=== PATIENT | male | born 1995 | race Two or more races ===

== ENCOUNTER 2024-12-24 03:20 | Emergency (ER) | payer MEDICAID, OTHER ==
[~2024-12-24] VITALS: Ht 182.9 cm; Wt 61.7 kg
--- NOTE | 2024-12-24 03:30 | ED.PDOC ---
Back pain HPI HPI Comments This is a 29-year-old male presents to the ED chief complaint right shoulder pain. Patient states he was doing pushups when he felt sudden onset of right shoulder pain. He describes pain as sharp shooting nonradiating pain to right shoulder 8/10 on pain scale. Denies any numbness or weakness. Time Seen by MD: 03:28 Reviewed Notes: Nurses Notes, Medications, Allergies Allergies: Coded Allergies: NO KNOWN ALLERGIES (Unverified , 12/24/24) Information Source: Patient Past Medical History PAST MEDICAL HISTORY: Denies Surgical History: Denies all surgeries Family History Family History: Unknown Social History Smoker: Non-Smoker Alcohol: Denies ETOH Use Drugs: Denies Drug Use Constitutional: denies: chills, diaphoresis, fatigue, fever, malaise, sweats, weakness, others EENTM: denies: blurred vision, double vision, ear bleeding, ear discharge, ear drainage, ear pain, ear ringing, eye pain, eye redness, hearing loss, mouth pain, mouth swelling, nasal discharge, nose bleeding, nose congestion, nose pain, photophobia, tearing, throat pain, throat swelling, voice changes, others Respiratory: denies: cough, hemoptysis, orthopnea, SOB at rest, shortness of breath, SOB with excertion, stridor, wheezing, others Cardiovascular: denies: chest pain, dizzy spells, diaphoresis, Dyspnea on exertion, edema, irregular heart beat, left arm pain, lightheadedness, palpitations, PND, syncope, others Gastrointestinal: denies: abdomen distended, abdominal pain, blood streaked bowels, constipated, diarrhea, dysphagia, difficulty swallowing, hematemesis, melena, nausea, poor appetite, poor fluid intake, rectal bleeding, rectal pain, vomiting, others Genitourinary: denies: burning, dysuria, flank pain, frequency, hematuria, incontinence, penile discharge, penile sore, pain, testicle pain, testicle swelling, urgency, others Neurological: denies: dizziness, fainting, headache, left sided numbness, left sided weakness, numbness, paresthesia, pre-existing deficit, right sided numbness, right sided weakness, seizure, speech problems, tingling, tremors, weakness, others Musculoskeletal: reports: others (Right shoulder pain); denies: back pain, gout, joint pain, joint swelling, muscle pain, muscle stiffness, neck pain Integumetry: denies: bruises, change in color, change in hair/nails, dryness, laceration, lesions, lumps, rash, wounds, others Allergic/Immunocompromised: denies: Difficulty Healing, Frequent Infections, Hives, Itching, others Hematologic/Lymphatic: denies: anemia, blood clots, easy bleeding, easy bruising, swollen glands, others Endocrine: denies: excessive hunger, excessive sweating, excessive thirst, excessive urination, flushing, intolerance to cold, intolerance to heat, unexplained weight gain, unexplained weight loss, others Psychiatric: denies: anxiety, bipolar disorder, depression, hopeless, panic disorder, schizophrenia, sleepless, suicidal, others Physical Exam General Appearance: No Apparent Distress, Normal HEENT: Pharynx Normal Neck: Full Range of Motion, Non-Tender Respiratory: Lungs Clear, No Respiratory Distress, Normal Breath Sounds Cardiovascular: No Murmur, Normal Peripheral Pulses, Regular Rate/Rhythm Breast Exam: Deferred Gastrointestinal: Non Tender, Soft Genitalia: Deferred Pelvic: Deferred Rectal: Deferred Extremities: Normal capillary refill, Normal inspection, Normal range of motion, Non-tender, No pedal edema Musculoskeletal : Location: Right Extremity Location: Shoulder (Moderate to severe pain on palpation anterior shoulder and distal aspect of clavicle no noted crepitus no noted ecchymosis, lesions, abrasions or lacerations strength and sensory intact patient unable to most shoulder fully due to severe pain. Positive radial pulse) Apperance: Normal Neurologic: Alert, security developer II-XII nml as Tested, No Motor Deficits, Normal Affect, Normal Mood, No Sensory Deficits Cerebellar Function: Normal Reflexes: Normal Skin: Dry, Normal Color, Warm Lymphatic: No Adenopathy Was a procedure done? Was a procedure done?: No Back Pain Differential Dx Differential Diagnosis: Fracture, Musculoskeletal Pain X-Ray, Labs, Meds, VS Vital Signs Date Time Temp Pulse Resp B/P (MAP) Pulse Ox O2 Delivery O2 Flow Rate FiO2 12/24/24 03:25 98.6 57 18 80/40 (53) 98 98.6 X-Ray, Labs, Meds, VS Comment Right shoulder x-ray shows clavicle fracture distal aspect.. Toradol 30 mg IV. Patient placed in sling. Script ibuprofen 800 mg t.i.d. PRN for the pain. Advised to follow up with PCP for referral for ortho. Discussed with advised on ER return precautions patient indicated understanding agrees with discharge plan of care. Time of 1ST Reevaluation: 03:29 Reevaluation 1ST: Unchanged Time of 2ND Reevaluation: 05:01 Reevaluation 2ND: Improved Patient Education/Counseling: Diagnosis, Treatment, Prognosis, Need For Follow Up Family Education/Counseling: Diagnosis, Treatment, Prognosis, Need For Follow Up Departure 1 Departure Time of Disposition: 05:03 Impression: Primary Impression: Closed right clavicular fracture Qualified Codes: S42.034A - Nondisplaced fracture of lateral end of right clavicle, initial encounter for closed fracture Disposition: 01 HOME / SELF CARE / HOMELESS Condition: Stable e-Prescriptions Ibuprofen (Ibuprofen) 800 Mg Tab 800 MG PO Q8HP PRN for 6 Days, #18 TAB Prov: JESSICA GOLDBERG 12/24/24 Discharged With: Self Critical Care Note Critical Care Time?: No Stability Stability form required: JESSICA French December 24, 2024 03:30
[2024-12-24 03:53] VITALS: PULSE 70; RESP 19; TEMP 98.2; O2SAT 96
--- NOTE | 2024-12-24 04:43 | DVH ---
CLINICAL INDICATION: RIGHT SHOULDER INJURY TECHNIQUE: XY R SHOULDER 2+ VIEW XRAY Comparison: None FINDINGS/IMPRESSION: : Mildly displaced fracture of the distal right clavicle. Otherwise, normal glenohumeral and acromiocla vicular articulation. The visualized portions of the right lung are clear. No definite rib fractures.
[2024-12-24] MEDS ORDERED: OXYCODONE W/ ACETAMINOPHEN 5/325MG TABLET PO ONE (04:45)
[2024-12-24] MEDS ORDERED: KETOROLAC TROMETH 60MG/2ML VIAL IM ONE (04:45)
[2024-12-24 05:00] VITALS: BP 98/61; PULSE 74; RESP 18; O2SAT 98
[2024-12-24] MEDS ORDERED: IBUP-1456 PO (05:03)
[2024-12-24] MEDS: KETOROLAC TROMETH 30 MG/ML 1ML VIAL IV ONE (05:07)
== END 2024-12-24 05:25 | disposition home or self-care (01) ==
LOC: ER 03:20
DX: S42.034A Nondisplaced fracture of lateral end of right clavicle, initial encounter for closed fracture (principal); W18.39XA Other fall on same level, initial encounter; Y93.B2 Activity, push-ups, pull-ups, sit-ups; Y92.89 Other specified places as the place of occurrence of the external cause; Y99.8 Other external cause status
CPT/HCPCS: 73030; 96374; 99283; J1885; 96372